=== PATIENT | female | born 1985 | race Caucasian/White ===

== ENCOUNTER 2016-11-14 00:14 | Observation (INO) | payer SELFPAY ==
[~2016-11-14] VITALS: Ht 170.2 cm; Wt 74.4 kg
[2016-11-14] MEDS ORDERED: PREN-88 PO (01:18)
== END 2016-11-14 01:00 | disposition left against medical advice (07) ==
LOC: L&D 00:14
PROVIDERS: ADMIT Specialist; ATTEND Specialist
DX: Z34.90 Encounter for supervision of normal pregnancy, unspecified, unspecified trimester (principal); Z3A.00 Weeks of gestation of pregnancy not specified
CPT/HCPCS: 99281; G0378